=== PATIENT | male | born 1995 | race Caucasian/White ===

== ENCOUNTER 2021-04-13 14:49 | Emergency (ER) | payer OTHER ==
[~2021-04-13] VITALS: Ht 172.7 cm; Wt 89.8 kg
--- NOTE | 2021-04-13 15:35 | REP ---
INDICATION: trauma. COMPARISON: None. TECHNIQUE: Four views. The lateral view is suboptimal in that all digits are superimposed. FINDINGS: The joint spaces are symmetric and relatively well maintained. There is no evidence of acute fracture or destructive osseous lesion. IMPRESSION: Negative hand. <Electronically signed by Matt Shea > 04/13/21 1701
--- NOTE | 2021-04-13 15:37 | REP ---
INDICATION: trauma. COMPARISON: None TECHNIQUE: Four views of the ribs with frontal view of the chest FINDINGS: Multiple views of the right ribs show no fracture or osseous lesion. The accompanying frontal view of the chest shows no cardiomegaly, infiltrates, effusions, or pneumothoraces. IMPRESSION: Negative right rib series. <Electronically signed by Matt Shea > 04/13/21 1537
[2021-04-13 17:00] VITALS: BP 128/88
== END 2021-04-13 17:11 | disposition home or self-care (01) ==
LOC: M ED 14:49
DX: S60.221A Contusion of right hand, initial encounter (principal); W51.XXXA Accidental striking against or bumped into by another person, initial encounter; Y93.61 Activity, american tackle football; Y92.9 Unspecified place or not applicable; Y99.9 Unspecified external cause status

== ENCOUNTER 2024-12-07 09:05 | Emergency (ER) | payer OTHER ==
[~2024-12-07] VITALS: Ht 172.7 cm; Wt 83.1 kg
[2024-12-07 09:41] LABS: BASO % 0.2 % (0.0-1.0); EOS # 0.1 10^3/uL (0.0-0.5); EOS % 0.5 % (0.0-3.0); HEMATOCRIT 51.8 % (42.0-52.0); HEMOGLOBIN 17.3 g/dl (13.5-17.5); LYMPH # 0.8 10^3/uL (1.5-5.0); LYMPH % 5.5 % (24.0-44.0); MEAN CORPUSCULAR HEMOGLOBIN 28.9 pg (27.0-33.0); MEAN CORPUSCULAR HGB CONC 33.4 g/dl (32.0-36.5); MEAN CORPUSCULAR VOLUME 86.6 fl (80.0-96.0); MONO # 0.8 10^3/uL (0.0-0.8); MONO % 5.3 % (2.0-8.0); NEUTROPHILS # 12.9 10^3/uL (1.5-8.5); NEUTROPHILS % 88.1 % (36.0-66.0); PLATELET COUNT, AUTOMATED 225 10^3/uL (150-450); RED BLOOD COUNT 5.98 10^6/uL (4.30-6.10); WHITE BLOOD COUNT 14.6 10^3/uL (4.0-10.0)
[2024-12-07] MEDS: ONDANSETRON 4MG 2ML VIAL IV ONE (10:04)
[2024-12-07] MEDS: NS 500 ML IV ONE (10:10)
[2024-12-07 10:19] LABS: LIPASE 44 U/L (12-53)
[2024-12-07 10:22] LABS: ALBUMIN 4.6 G/DL (3.2-5.2); ALKALINE PHOSPHATASE 97 U/L (40-129); ALT/SGPT 72 U/L (7.0-40); AST/SGOT 30 U/L (<34); BILIRUBIN,DIRECT 0.3 MG/DL (<0.4); BILIRUBIN,TOTAL 0.9 MG/DL (0.3-1.2); BLOOD UREA NITROGEN 21 MG/DL (9-23); CALCIUM LEVEL 9.7 MG/DL (8.5-10.1); CARBON DIOXIDE LEVEL 28 MMOL/L (20-31); CHLORIDE LEVEL 104 MMOL/L (98-107); GLOMERULAR FILTRATION RATE > 60.0 (>60); GLUCOSE, FASTING 116 MG/DL (60-100); POTASSIUM SERUM 4.3 MMOL/L (3.5-5.1); SODIUM LEVEL 140 MMOL/L (136-145); TOTAL PROTEIN 8.2 G/DL (5.7-8.2)
[2024-12-07] MEDS ORDERED: ONDA-282 PO (11:15)
[2024-12-07 11:26] VITALS: BP 124/64; TEMP 98.7; O2SAT 100
== END 2024-12-07 11:28 | disposition home or self-care (01) ==
LOC: M ED 09:05
DX: R11.2 Nausea with vomiting, unspecified (principal); R19.7 Diarrhea, unspecified; G43.909 Migraine, unspecified, not intractable, without status migrainosus; F41.9 Anxiety disorder, unspecified; M54.50 Low back pain, unspecified; Z79.83 Long term (current) use of bisphosphonates
CPT/HCPCS: 36415; 80048; 80076; 83690; 85025; 96361; 96374; 99284; J2405

== ENCOUNTER 2025-08-10 11:16 | Emergency (ER) | payer OTHER ==
[~2025-08-10] VITALS: Ht 172.7 cm; Wt 87.6 kg
[~2025-08-10 11:16] MED LIST: ONDA-282 PO
[2025-08-10 11:24] VITALS: TEMP 97.2
[2025-08-10 12:26] LABS: BASO # 0.1 10^3/uL (0.0-0.2); BASO % 0.7 % (0.0-1.0); EOS # 0.1 10^3/uL (0.0-0.5); EOS % 1.5 % (0.0-3.0); LYMPH # 2.5 10^3/uL (1.5-5.0); LYMPH % 33.8 % (24.0-44.0); MONO # 0.6 10^3/uL (0.0-0.8); MONO % 7.7 % (2.0-8.0); NEUTROPHILS # 4.2 10^3/uL (1.5-8.5); NEUTROPHILS % 56.0 % (36.0-66.0); PLATELET COUNT, AUTOMATED 225 10^3/uL (150-450)
[2025-08-10 12:41] LABS: INR 0.91
[2025-08-10 12:59] LABS: CALCIUM LEVEL 9.4 MG/DL (8.5-10.1); CARBON DIOXIDE LEVEL 28 MMOL/L (20-31); CHLORIDE LEVEL 104 MMOL/L (98-107); CK-MB VALUE MASS 3.0 NG/ML (<3.6); CREATININE FOR GFR 0.73 MG/DL (0.70-1.30); GLOMERULAR FILTRATION RATE > 90.0 (>60); POTASSIUM SERUM 4.5 MMOL/L (3.5-5.1); SODIUM LEVEL 141 MMOL/L (136-145)
[2025-08-10 13:01] LABS: CPK CREATINE PHOSPHOKINASE 547 U/L (46-171); MB/CK RELATIVE INDEX 0.54 (< OR =4)
[2025-08-10 13:15] VITALS: BP 141/81; O2SAT 99
[2025-08-10] MEDS: NS (Normal Saline) 0.9% 1,000 ML IV ONE (13:15)
[2025-08-10 13:39] LABS: CK-MB VALUE MASS 2.6 NG/ML (<3.6)
[2025-08-10 13:42] LABS: CPK CREATINE PHOSPHOKINASE 523.0 U/L (46-171); MB/CK RELATIVE INDEX 0.49 (< OR =4)
== END 2025-08-10 14:06 | disposition home or self-care (01) ==
LOC: M ED 11:16
DX: R07.9 Chest pain, unspecified (principal); I49.1 Atrial premature depolarization; R51.9 Headache, unspecified